=== PATIENT | female | born 1990 | race Caucasian/White ===

== ENCOUNTER 2016-07-12 15:48 | Emergency (ER) | payer MEDICAID ==
[~2016-07-12] VITALS: Ht 160 cm; Wt 118.8 kg
[~2016-07-12 15:48] MED LIST: HYDROCHLOROTHIA1 TAB PO; METOPROLOL SUCC25 M2 PO; SULFAMETHOXAZOL1 TA6 PO; ZITHROMAX Z PA250 MG PO
[2016-07-12] MEDS ORDERED: KEFLEX 500MG.500 MG PO (16:26)
--- NOTE | 2016-07-12 16:27 | Urgent Treatment Center Report ---
History of Present Issue Date/Time Seen by Provider 07/12/16 1619 Visit Reason Pt arrived:Walked Presenting Problem:PT STATES KNOT TO LEFT BACK SIDE OF NECK. STATES HAS BEEN PRESENT FOR THREE OR FOUR DAYS. Location if Accident: Onset of symptoms date/time:/ or onset unknown for:MEDICAL HX UNKNOWN Have you (or family members/close friends) recently traveled outside the [place]? N If Yes, where/when: Have you had exposure to infectious disease within the past month? TB? Other? Specify: Patient state that she noticed a small raised area behind her left ear states that she thinks it may be an infected mole as she often scratches her head there and now it is raised and sore so she wanted to come get it checked out ALLERGIES Coded Allergies: No Known Allergies (01/17/16) Home Medications Reported Medications Metoprolol Succinate 25 MG PO DAILY 30 Days LISINOPRIL/HYDROCHLOROTHIAZIDE (Lisinopril-Hctz 10-12.5 MG Tab) 1 TAB PO DAILY 30 Days History Medical History General CAD? No Angina: No [place]: No Hypertension? Yes Hyperlipidemia? No CHF? No DVT? No PE? No COPD? No Asthma? No Anemia? No GERD? No Gastric ulcers? No GI Bleed? No Hernia? No Thyroid Problems? No Hypothyroidism? No CVA? No Seizures? No Diabetes? No Renal Insuffiency? No UTI? No Stones? No GB Disease: No Nephritic Syndrome? No Asplenia? No Hepatitis? No Sickle Cell Disease? No Arthritis? No Migraines? No Cataracts? No Glaucoma? No MRSA? No HIV? No TB? No Anxiety? No Depression? No Cancer? 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 Hx LMP 1 Week Ago Family History Family HX Diabetes Yes CAD Yes Hypertension Yes Hyperlipidemia Yes Cancer Yes TB No Social History Smoking Hx Smoker: Current Every Day Smoker Tobacco: Yes Type Cigarettes Packs/day 1 1/2 - 2 Packs Alcohol Alcohol: No Review of Systems All Other Systems Reviewed and Negative Skin denies other (raised area behind ear) Comment small raised tender area behind left ear for the last3-4 days Physical Exam Vital Signs Vital Signs Date Time Temp Pulse Resp B/P Pulse O2 O2 Flow FiO2 Ox Delivery Rate 07/12 1601 99.1 100 20 174/101 94 General Appearance normal appearance, WD/WN, no apparent distress, mild distress Respiratory Status Yes: trachea midline, chest symmetrical, non tender chest. No: respiratory distress. 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 No Departure Departure Time of Disposition 1623 Disposition DC Home or Self Care(routine) Clinical Impression Primary Impression: Abscess Condition STABLE Referrals Gerardo ZELAYA,Tao (Family) VAL DENG: Tomorrow-Call Office call 2-3 days for appointment if no improvement Additional Instructions Keep area clean and dry Over the counter Motrin or Tylenol as needed for fever or pain Follow up with family doctor Call Dermatology and make appointment for skin tags and moles Return if needed Discharge Counseling Counseled pt/family regarding diagnosis, medications/RX, home care, follow up needs Prescriptions Current Visit Scripts CEPHALEXIN (Keflex 500MG Capsule) 500 MG PO QID #28 CAP at [id number]
--- NOTE | 2016-07-12 16:27 | Urgent Treatment Center Report ---
History of Present Issue Date/Time Seen by Provider 07/12/16 1619 Visit Reason Pt arrived:Walked Presenting Problem:PT STATES KNOT TO LEFT BACK SIDE OF NECK. STATES HAS BEEN PRESENT FOR THREE OR FOUR DAYS. Location if Accident: Onset of symptoms date/time:/ or onset unknown for:MEDICAL HX UNKNOWN Have you (or family members/close friends) recently traveled outside the [place]? N If Yes, where/when: Have you had exposure to infectious disease within the past month? TB? Other? Specify: Patient state that she noticed a small raised area behind her left ear states that she thinks it may be an infected mole as she often scratches her head there and now it is raised and sore so she wanted to come get it checked out ALLERGIES Coded Allergies: No Known Allergies (01/17/16) Home Medications Reported Medications Metoprolol Succinate 25 MG PO DAILY 30 Days LISINOPRIL/HYDROCHLOROTHIAZIDE (Lisinopril-Hctz 10-12.5 MG Tab) 1 TAB PO DAILY 30 Days History Medical History General CAD? No Angina: No [place]: No Hypertension? Yes Hyperlipidemia? No CHF? No DVT? No PE? No COPD? No Asthma? No Anemia? No GERD? No Gastric ulcers? No GI Bleed? No Hernia? No Thyroid Problems? No Hypothyroidism? No CVA? No Seizures? No Diabetes? No Renal Insuffiency? No UTI? No Stones? No GB Disease: No Nephritic Syndrome? No Asplenia? No Hepatitis? No Sickle Cell Disease? No Arthritis? No Migraines? No Cataracts? No Glaucoma? No MRSA? No HIV? No TB? No Anxiety? No Depression? No Cancer? 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 Family History Family HX Diabetes Yes CAD Yes Hypertension Yes Hyperlipidemia Yes Cancer Yes TB No Social History Smoking Hx Smoker: Current Every Day Smoker Tobacco: Yes Type Cigarettes Packs/day 1 1/2 - 2 Packs Alcohol Alcohol: No Review of Systems All Other Systems Reviewed and Negative Skin denies other (raised area behind ear) Comment small raised tender area behind left ear for the last3-4 days Physical Exam Vital Signs Vital Signs Date Time Temp Pulse Resp B/P Pulse O2 O2 Flow FiO2 Ox Delivery Rate 07/12 1601 99.1 100 20 174/101 94 General Appearance normal appearance, WD/WN, no apparent distress, mild distress Respiratory Status Yes: trachea midline, chest symmetrical, non tender chest. No: respiratory distress. 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 No Departure Departure Time of Disposition 1623 Disposition DC Home or Self Care(routine) Clinical Impression Primary Impression: Abscess Condition STABLE Referrals Gerardo ZELAYA,Tao (Family) VAL DENG: Tomorrow-Call Office call 2-3 days for appointment if no improvement Additional Instructions Keep area clean and dry Over the counter Motrin or Tylenol as needed for fever or pain Follow up with family doctor Call Dermatology and make appointment for skin tags and moles Return if needed Discharge Counseling Counseled pt/family regarding diagnosis, medications/RX, home care, follow up needs Prescriptions Current Visit Scripts CEPHALEXIN (Keflex 500MG Capsule) 500 MG PO QID #28 CAP at [id number]
[2016-07-12 16:35] VITALS: BP 174/101
== END 2016-07-12 16:36 | disposition home or self-care (01) ==
LOC: UTC 15:48
DX: L02.11 Cutaneous abscess of neck (principal); Z72.0 Tobacco use; I10 Essential (primary) hypertension

== ENCOUNTER 2017-01-07 18:38 | Emergency (ER) | payer MEDICAID ==
[~2017-01-07] VITALS: Ht 162.6 cm; Wt 108.0 kg
[~2017-01-07 18:38] MED LIST changes: +KEFLEX 500MG.500 MG PO
--- NOTE | 2017-01-07 19:13 | Urgent Treatment Center Report ---
History of Present Issue Date/Time Seen by Provider 01/07/171910 Visit Reason Pt arrived:Walked Presenting Problem:PT C/O COUGH X3-4 DAYS AND C/O PAIN WHEN COUGHING Location if Accident: Onset of symptoms date/time:/ or onset unknown for:MEDICAL HX UNKNOWN Have you (or family members/close friends) recently traveled outside the [place]? N If Yes, where/when: Have you had exposure to infectious disease within the past month? TB? Other? Specify: Patient state that she has had cough for three to four days with sinus pain and pressure. States that she has coughed so much that she is having pain in her ribs when she coughs. States that she has been having sore throat, and drainage that has continued to get worse so she finally came in to get checked out ALLERGIES Coded Allergies: No Known Allergies (01/07/17) Home Medications Active Scripts CEPHALEXIN (Keflex 500MG Capsule) 500 MG PO QID #28 CAP Prov: 07/12/16 Reported Medications Metoprolol Succinate 25 MG PO DAILY 30 Days LISINOPRIL/HYDROCHLOROTHIAZIDE (Lisinopril-Hctz 10-12.5 MG Tab) 1 TAB PO DAILY 30 Days History Medical History General CAD? No Angina: No [place]: No Hypertension? Yes Hyperlipidemia? No CHF? No DVT? No PE? No COPD? No Asthma? No Anemia? No GERD? No Gastric ulcers? No GI Bleed? No Hernia? No Thyroid Problems? No Hypothyroidism? No CVA? No Seizures? No Diabetes? No Renal Insuffiency? No UTI? No Stones? No GB Disease: No Nephritic Syndrome? No Asplenia? No Hepatitis? No Sickle Cell Disease? No Arthritis? No Migraines? No Cataracts? No Glaucoma? No MRSA? No HIV? No TB? No Anxiety? No Depression? No Cancer? No Immunization HX DT/Tetanus 1-4 YRS Flu 2YRSorMore Pneumonia NEVER Surgical Hx Previous Surgery?Y C-SECTIONS X2 WISDOM TEETH OTHER ORAL SURGERY Family History Family HX Diabetes Yes CAD Yes Hypertension Yes Hyperlipidemia Yes Cancer Yes TB No Social History Smoking Hx Smoker: Current Every Day Smoker Tobacco: Yes Type Cigarettes Packs/day 1 1/2 - 2 Packs Alcohol Alcohol: No Review of Systems All Other Systems Reviewed and Negative Constitutional chills ENT nose congestion, throat pain. Respiratory cough Physical Exam Vital Signs Vital Signs Date Time Temp Pulse Resp B/P Pulse O2 O2 Flow FiO2 Ox Delivery Rate 01/07 1846 98.7 98 18 201/131 97 General Appearance normal appearance Ear, Nose, Throat sinus pain/drainage, nasal congestion, Throat red, irritated drainage noted Respiratory Status Yes: trachea midline, chest symmetrical, non tender chest. No: respiratory distress. Cardiovascular normal exam, regular rate/rhythm, no peripheral edema Neurologic alert, normal exam, oriented x 3 Medical Decision Making LABS/Meds/Orders Pt receiving controlled substance in ED? No Results/Orders Orders Procedure Date/time Status CHEST(2 VIEWS-NOT PORTABLE) 01/07 1850 Active XRAY/CT/US XRAY/CT/US XRAY chest XR interpretation by reviewed by me Xray Results no infiltrates Comment discussed with Dr Vaz Departure Departure Time of Disposition 1934 Disposition DC Home or Self Care(routine) Clinical Impression Primary Impression: Upper respiratory infection Qualifiers: URI type: unspecified URI Qualified Code: J06.9 - Acute upper respiratory infection, unspecified Condition STABLE Referrals Tao Carrillo MD (Family): 3 Days-Call Office if no improvement or worsening of symtoms Patient Instructions Cough, DI for Nasal Congestion, DI for Sinusitis Additional Instructions * Monitor Temp. Tylenol and/or Ibuprofen as needed. ER if fever is no less than 101 despite alternating Tylenol and Ibuprofen * Encourage fluids, water, Gatorade, powerade, pedialyte if /toddler/or child * Warm salt water gargles for throat irritation *Warm fluids *Sore throat lozenges *Sleep elevated *humidifier or vaporizer *Flonase 2 sprays each nostril daily but may take 2-3 days to notice improvement with it *Bromfed may cause drowsiness. Know how it effect you or your child. Before driving, caring for small children or sending your child to school Follow up IMMEDIATELY for new or worsening of symptoms OR no noticeable improvement over the next 48-72 hours. 911 immediately for any life threatening symptoms such as chest pain or difficulty breathing Discharge Counseling Counseled pt/family regarding diagnosis, test results, medications/RX, home care, follow up needs Prescriptions Current Visit Scripts Azithromycin (Zithromycin (Z-DAILY) 250MG Tab) 250 MG PO DAILY #6 TAB TAKE TWO (2) TABLETS ON DAY 1, THEN ONE (1) TABLET DAY #2 THRU #5 Fluticasone Propionate (Flonase 50 Mcg Nasal [place]) 2 SPRAY NA DAILY #1 BOT Methylprednisolone (Medrol Dose Daily) 4 MG PO UD #1 DAILY TAKE DIRECTED ON PACKAGING Albuterol Sulfate (Proair Hfa) 2 PUFFS IH Q6HP PRN breathing #1 INH Ref 1 Benzonatate (Tessalon Perle) 100 MG PO TID #15 SGL at 1940
[2017-01-07] MEDS ORDERED: PROAIR HFA0.09 MG/AC IH (19:40)
[2017-01-07] MEDS ORDERED: FLONASE 50 MCG16 GM (19:40)
[2017-01-07] MEDS ORDERED: ZITHROMAX Z PA250 MG PO (19:40)
[2017-01-07] MEDS ORDERED: TESSALON PERLE100 M1 PO (19:40)
[2017-01-07] MEDS ORDERED: MEDROL 4MG. DOSE4 MG PO (19:40)
[2017-01-07 19:58] VITALS: BP 201/131
--- NOTE | 2017-01-07 21:42 | RADIOLOGY REPORT PS360 ---
CHEST(2 VIEWS-NOT PORTABLE) COMPARISON: Portable upright chest 01/17/2016 HISTORY: Chest wall pain TECHNIQUE: PA and lateral chest FINDINGS: The lung herrera are well expanded and appear clear of infiltrate. There is borderline cardiomegaly but no evidence of failure. There is no pleural fluid. IMPRESSION: Borderline cardio megaly, no acute chest pathology noted
--- OUTSIDE RECORDS SUMMARY | 2017-01-13 16:14 | External Medical Summary Rpt | CCD ---
Author Author [employer] Organization [employer] Address Unknown Phone Unavailable Purpose Continuity of Care Document - through 2016
--- OUTSIDE RECORDS SUMMARY | 2017-01-13 16:14 | External Medical Summary Rpt ---
Author Author SCOTT Dennis, [employer] Address Unknown Phone Unavailable Results CHLAMYDIA AND GONORRHEA TESTING Observa Value Referen Units Interpr Notes Date tion ce etation Range COLLECT AH No No No No Nov 15 OR informa informa informa informa 2017 tion in tion in tion in tion in 11:00 source source source source AM data data data data ETHNICI WHITE, No No No No Nov 15 TY NON-HIS informa informa informa informa 2017 PANIC tion in tion in tion in tion in 11:00 source source source source AM data data data data KIT 10-31-2 No No No No Nov 15 EXPIRAT 017 informa informa informa informa 2017 ION tion in tion in tion in tion in 11:00 DATE source source source source AM data data data data SYMPTOM NO No No No No Nov 15 S informa informa informa informa 2017 tion in tion in tion in tion in 11:00 source source source source AM data data data data REASON REVISIT No No No No Nov 15 FOR /ANNUAL informa informa informa informa 2017 REQUEST FAMILY tion in tion in tion in tion in 11:00 source source source source AM PLANNIN data data data data G VISIT SPECIME FEMALE No No No No Nov 15 N ENDOCER informa informa informa informa 2017 SOURCE VICAL tion in tion in tion in tion in 11:00 source source source source AM data data data data PREGNAN NO No No No No Nov 15 T informa informa informa informa 2017 tion in tion in tion in tion in 11:00 source source source source AM data data data data CHART N/A No No No No Nov 15 NUMBER informa informa informa informa 2017 tion in tion in tion in tion in 11:00 source source source source AM data data data data Chlamyd NEGATIV No No No NEGATIV Nov 15 ia E informa informa informa E 2017 trachom tion in tion in tion in RESULT= 11:00 atis source source source WITHIN AM rRNA data data data NORMAL [Presen ce] in LIMITSP Unspeci OSITIVE fied specime RESULT= n by Probe & ABNORMA target LEQUIVO ANNE-MARIE amplifi RESULT= cation method INDETER MINATEU NSATISF ACTORY RESULT= INVALID Neisser NEGATIV No No No NEGATIV Nov 15 ia E informa informa informa E 2017 gonorrh tion in tion in tion in RESULT= 11:00 oeae source source source WITHIN AM rRNA data data data NORMAL [Presen ce] in LIMITSP Unspeci OSITIVE fied specime RESULT= n by Probe & ABNORMA target LEQUIVO ANNE-MARIE amplifi RESULT= cation method INDETER MINATEU NSATISF ACTORY RESULT= INVALID THE APTIMA COMBO 2 ASSAY IS NOT INTENDE D FOR THE EVALUAT ION OF SUSPECT EDSEXUA L ABUSE OR FOR OTHER MEDICO- LEGAL INDICAT IONS. FOR THOSE PATIENT S FORWHOM A FALSE POSITIV E RESULT MAY HAVE ADVERSE PSYCHO- SOCIAL IMPACT, [facility] MM[facility] RETESTI NG.\.br \This report contain s patient informa tion that must be protect ed in accorda nce with the Health Insuran ce Portabi lity and Account ability Act. CHLAMYDIA AND GONORRHEA TESTING Observa Value Referen Units Interpr Notes Date tion ce etation Range COLLECT AH No No No No Nov 15 OR informa informa informa informa 2017 tion in tion in tion in tion in 11:00 source source source source AM data data data data ETHNICI WHITE, No No No No Nov 15 TY NON-HIS informa informa informa informa 2017 PANIC tion in tion in tion in tion in 11:00 source source source source AM data data data data KIT 10-31-2 No No No No Nov 15 EXPIRAT 017 informa informa informa informa 2017 ION tion in tion in tion in tion in 11:00 DATE source source source source AM data data data data SYMPTOM NO No No No No Nov 15 S informa informa informa informa 2017 tion in tion in tion in tion in 11:00 source source source source AM data data data data REASON REVISIT No No No No Nov 15 FOR /ANNUAL informa informa informa informa 2017 REQUEST FAMILY tion in tion in tion in tion in 11:00 source source source source AM PLANNIN data data data data G VISIT SPECIME FEMALE No No No No Nov 15 N ENDOCER informa informa informa informa 2017 SOURCE VICAL tion in tion in tion in tion in 11:00 source source source source AM data data data data PREGNAN NO No No No No Nov 15 T informa informa informa informa 2017 tion in tion in tion in tion in 11:00 source source source source AM data data data data CHART N/A No No No No Nov 15 NUMBER informa informa informa informa 2017 tion in tion in tion in tion in 11:00 source source source source AM data data data data Chlamyd Pending No No No No Nov 15 ia informa informa informa informa 2017 trachom tion in tion in tion in tion in 11:00 atis source source source source AM rRNA data data data data [Presen ce] in Unspeci fied specime n by Probe & target amplifi cation method Neisser Pending No No No \.br\Nov 15 ia informa informa informa is 2017 gonorrh tion in tion in tion in report 11:00 oeae source source source contain AM rRNA data data data s [Presen patient ce] in Unspeci informa fied tion specime that n by must be Probe & target protect ed in amplifi accorda cation nce method with the Health Insuran ce Portabi lity and Account ability Act. CHLAMYDIA AND GONORRHEA TESTING Observa Value Referen Units Interpr Notes Date tion ce etation Range COLLECT AH No No No No Nov 15 OR informa informa informa informa 2017 tion in tion in tion in tion in 11:00 source source source source AM data data data data ETHNICI WHITE, No No No No Nov 15 TY NON-HIS informa informa informa informa 2017 PANIC tion in tion in tion in tion in 11:00 source source source source AM data data data data KIT 10-31-2 No No No No Nov 15 EXPIRAT 017 informa informa informa informa 2017 ION tion in tion in tion in tion in 11:00 DATE source source source source AM data data data data SYMPTOM NO No No No No Nov 15 S informa informa informa informa 2017 tion in tion in tion in tion in 11:00 source source source source AM data data data data REASON REVISIT No No No No Nov 15 FOR /ANNUAL informa informa informa informa 2017 REQUEST FAMILY tion in tion in tion in tion in 11:00 source source source source AM PLANNIN data data data data G VISIT SPECIME FEMALE No No No No Nov 15 N ENDOCER informa informa informa informa 2017 SOURCE VICAL tion in tion in tion in tion in 11:00 source source source source AM data data data data PREGNAN NO No No No No Nov 15 T informa informa informa informa 2017 tion in tion in tion in tion in 11:00 source source source source AM data data data data CHART N/A No No No No Nov 15 NUMBER informa informa informa informa 2017 tion in tion in tion in tion in 11:00 source source source source AM data data data data Chlamyd Pending No No No No Nov 15 ia informa informa informa informa 2017 trachom tion in tion in tion in tion in 11:00 atis source source source source AM rRNA data data data data [Presen ce] in Unspeci fied specime n by Probe & target amplifi cation method Neisser Pending No No No \.br\Nov 15 ia informa informa informa is 2017 gonorrh tion in tion in tion in report 11:00 oeae source source source contain AM rRNA data data data s [Presen patient ce] in Unspeci informa fied tion specime that n by must be Probe & target protect ed in amplifi accorda cation nce method with the Health Insuran ce Portabi lity and Account ability Act.
--- OUTSIDE RECORDS SUMMARY | 2017-01-13 16:14 | External Medical Summary Rpt ---
[...] MAY HAVE ADVERSE PSYCHO- SOCIAL IMPACT, [facility] RET[facility] NG.\.br \This report contain s [...]
--- OUTSIDE RECORDS SUMMARY | 2017-01-13 16:14 | External Medical Summary Rpt | CCD ---
Author Author , [employer] Address Unknown Phone [email or web address] Purpose Continuity of Care Document - 11-15-2016 through 2016 Results Labs Lab Lab Date Result Refere Interp Status Commen Order Detail nces retati t Range on CHLAMYDIA AND GONORRHEA TESTING (11-15-2016 11:00) Chlamyd NEGATIV complet ia 017 E ed trachom 11:00 atis rRNA [Presen ce] in Unspeci fied specime n by Probe & target amplifi cation method Neisser NEGATIV complet ia 017 E ed gonorrh 11:00 oeae rRNA [Presen ce] in Unspeci fied specime n by Probe & target amplifi cation method CHLAMYDIA AND GONORRHEA TESTING (11-15-2016 11:00) COLLECT AH complet OR 017 ed 11:00 ETHNICI WHITE, complet TY 017 NON-HIS ed 11:00 PANIC KIT 01-31-2 complet EXPIRAT 017 017 ed ION 11:00 DATE SYMPTOM NO complet S 017 ed 11:00 REASON REVISIT complet FOR 017 /ANNUAL ed REQUEST 11:00 FAMILY PLANNIN G VISIT SPECIME FEMALE complet N 017 ENDOCER ed SOURCE 11:00 VICAL PREGNAN NO complet T 017 ed 11:00 CHART N/A complet NUMBER 017 ed 11:00 Chlamyd Pending complet ia 017 ed trachom 11:00 atis rRNA [Presen ce] in Unspeci fied specime n by Probe & target amplifi cation method Neisser Pending complet ia 017 ed gonorrh 11:00 oeae rRNA [Presen ce] in Unspeci fied specime n by Probe & target amplifi cation method
--- OUTSIDE RECORDS SUMMARY | 2017-01-13 16:14 | External Medical Summary Rpt | CCD ---
Demographics Preferred Language Malay Marital Status Unknown Orthodox Affiliation Unknown Race Unknown Ethnic Group Unknown Author Author , SCOTT CHAVEZ Address Unknown Phone Immunization No patient found.
--- OUTSIDE RECORDS SUMMARY | 2017-01-13 16:14 | External Medical Summary Rpt | CCD ---
Author Author , [employer] Address Unknown Phone [email or web address] Purpose Continuity of Care Document - 11-15-2016 [...]
--- OUTSIDE RECORDS SUMMARY | 2017-01-13 16:14 | External Medical Summary Rpt | CCD ---
Demographics Preferred Language Indonesian Marital Status Unknown Confucianist Affiliation Unknown Race Unknown Ethnic Group Unknown Author Author , SCOTT CHAVEZ Address Unknown Phone Immunization No patient found.
== END 2017-01-07 20:00 | disposition home or self-care (01) ==
LOC: UTC 18:38
DX: J06.9 Acute upper respiratory infection, unspecified (principal); F17.210 Nicotine dependence, cigarettes, uncomplicated; I10 Essential (primary) hypertension

== ENCOUNTER 2017-01-12 18:43 | Emergency (ER) | payer MEDICAID ==
[~2017-01-12] VITALS: Ht 162.6 cm; Wt 105.2 kg
[~2017-01-12 18:43] MED LIST changes: +FLONASE 50 MCG16 GM; +MEDROL 4MG. DOSE4 MG PO; +PROAIR HFA0.09 MG/AC IH; +TESSALON PERLE100 M1 PO
[2017-01-12 19:11] LABS: HEMOGLOBIN 15.8 g/dL (12.2-16.2); LYMPH # 3.5 K/mm3 (0.7-4.5); LYMPH % 33.3 % (10-50.0)
[2017-01-12 19:22] LABS: URINE BILIRUBIN - DIPSTICK NEGATIVE (NEG); URINE BLOOD 3+ (NEG)
[2017-01-12 19:36] LABS: URINE SQUAMOUS CELLS 20-50 #/hpf (0-5)
--- NOTE | 2017-01-12 19:41 | Emergency Room Report ---
History of Present Illness Time Seen by 1933 Presenting Problem in Triage Pt arrived:Wheelchair Presenting Problem:PT C/O DIZZINESS AND FEELING IF SHE IS GOING TO PASS OUT. 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 N Clinical Suspician of Infection? N Mental Status: 1 - Regular (Normal Baseline) Sepsis Risk:Possible Sepsis Risk Have you (or family members/close friends) recently traveled outside the [place]? N If Yes, where/when: Have you had exposure to infectious disease within the past month? N TB? Other? Specify: 26 years old white female with history of hypertension and asthma. She ran out of her blood pressure medicine and developed frontal headache, dizziness, and difficulty breathing. She denies having chest pain or abdominal pain nausea vomiting. She denies having numbness or tingling of the lower extremities. Source patient, RN notes reviewed, family Exam Limitations no limitations ALLERGIES Coded Allergies: No Known Allergies (01/07/17) (Driss ZELAYA,[facility]) Comment pt felt dizzy but no syncope Cardiac Chest Pain Chest pain indicative of cardiac No Timing/Duration this evening Severity moderate Home Medications Active Scripts CEPHALEXIN (Keflex 500MG Capsule) 500 MG PO QID #28 CAP Prov: 07/12/16 Azithromycin (Zithromycin (Z-JEAN-PIERRE) 250MG Tab) 250 MG PO DAILY #6 TAB Prov: 01/07/17 Fluticasone Propionate (Flonase 50 Mcg Nasal [place]) 2 SPRAY NA DAILY #1 BOT Prov: 01/07/17 Methylprednisolone (Medrol Dose Jean-Pierre) 4 MG PO UD #1 JEAN-PIERRE Prov: 01/07/17 Albuterol Sulfate (Proair Hfa) 2 PUFFS IH Q6HP PRN breathing #1 INH Ref 1 Prov: 01/07/17 Benzonatate (Tessalon Perle) 100 MG PO TID #15 SGL Prov: 01/07/17 Reported Medications Metoprolol Succinate 25 MG PO DAILY 30 Days LISINOPRIL/HYDROCHLOROTHIAZIDE (Lisinopril-Hctz 10-12.5 MG Tab) 1 TAB PO DAILY 30 Days (Prieto More MD) History Medical History General CAD? No Angina: No [place]: No Hypertension? Yes Hyperlipidemia? No CHF? No DVT? No PE? No COPD? No Asthma? No Anemia? No GERD? No Gastric ulcers? No GI Bleed? No Hernia? No Thyroid Problems? No Hypothyroidism? No CVA? No Seizures? No Diabetes? No Renal Insuffiency? No End Stage Renal Disease? No UTI? No Stones? No BPH? No GB Disease: No Nephritic Syndrome? No Asplenia? No Hepatitis? No Sickle Cell Disease? No Arthritis? No Migraines? No Cataracts? No Glaucoma? No MRSA? No HIV? No TB? No Anxiety? No Depression? No Cancer? 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 Respiratory see HPI, shortness of breath, wheezing Cardiovascular no symptoms reported Gastrointestinal no symptoms reported Genitourinary no symptoms reported. Musculoskeletal no symptoms reported Skin no symptoms reported Psychiatric/Neurological headache (Marycarmen Naqvi MD) Physical Exam Vital Signs Vital Signs Date Time Temp Pulse Resp B/P Pulse O2 O2 Flow FiO2 Ox Delivery Rate 01/12 2035 98.3 93 18 182/126 96 01/12 1927 105 20 180/100 94 01/12 1852 98.4 119 20 187/117 119 - WBC >12,000 or <4,000 or 10% bands? 2 or more SIRS Criteria Met? B/P:180/100 MAP:140 Creatinine >2.0? UA output<0.5ml/kg/hr for 2 hrs? Platelet count >100,000? Lactate >2.0mmol/1? INR >1.2 or PTT > than 60 sec? Evidence of Organ Dysfunction? Provider documented clinical suspician of infection? N Sepsis Criteria Count: 2 Sepsis Risk: Possible Sepsis Risk General Appearance normal appearance, WD/WN Eye Exam - bilateral eye normal exam, bilateral eye PERRL, bilateral eye EOMI Ear, Nose, Throat hearing grossly normal, normal ENT inspection Neck normal inspection, non-tender, supple, full range of motion Respiratory Status Yes: trachea midline, chest symmetrical, non tender chest. No: respiratory distress. Lung Sounds bilateral: wheezing (mild exp wheez bilaterraly). 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 2 or more SIRS Criteria Met? B/P:182/126 MAP:140 Creatinine >2.0? UA output<0.5ml/kg/hr for 2 hrs? Platelet count >100,000? Lactate >2.0mmol/1? INR >1.2 or PTT > than 60 sec? Evidence of Organ Dysfunction? Provider documented clinical suspician of infection? N Sepsis Criteria Count: 2 Sepsis Risk: Possible Sepsis Risk General Appearance no apparent distress Glascow Coma Scale Glascow Coma Scale Response Value EYE response: 4 Spontaneously 4 MOTOR response: 6 OBEYS 6 VERBAL response: 5 Oriented & Converses 5 Total 15 Mental status normal mood/affect (Derik ZELAYA,Prieto Gil) Medical Decision Making LABS/Meds/Orders Pt receiving controlled substance in ED? No Results/Orders Laboratory Tests 01/12/171914: Urine Color YELLOW, Urine Appearance CLEAR, Urine pH 6.0, Ur Specific [place] 1.020, Urine Protein TRACE H, Urine Ketones NEGATIVE, Urine Blood 3+ H, Urine Nitrate POSITIVE H, Urine Bilirubin NEGATIVE, Urine Urobilinogen 0.2, Ur Leukocyte Esterase 1+ H, Urine RBC 50-100, Urine WBC 5-10, Ur Squamous Epith Cells 20-50, Urine Bacteria 4+, Urine Glucose NEGATIVE 01/12/171857: Troponin I < 0.02 01/12/171857: Sodium 137, Potassium 3.4 L, Chloride 101, Carbon Dioxide 29, BUN 14, Creatinine 0.9, Estimated Creat Clear 155, Estimated GFR (MDRD) 75, Glucose 107 H, Calcium 9.1, Total Bilirubin 0.3, AST 13 L, ALT 19, Alkaline Phosphatase 99, Total Protein 8.0, Albumin 4.0, Globulin 4.0 H, Albumin/Globulin Ratio 1.0 L, WBC 10.4, RBC 5.15, Hgb 15.8, Hct 45.2, MCV 87.7, RDW 12.1, Plt Count 272, MPV 8.4, Gran % 58.2, Gran # 6.1, Lymphocytes % 33.3, Monocytes % 5.1, Eosinophils % 2.8, Basophils % 0.5, Lymphocytes # 3.5, Monocytes # 0.5, Eosinophils # 0.3, Basophils # 0.1, PUBS MCHC 35.1, MCH 30.8 01/12/171851: POC Glucose 109 Current Medication Orders Sig/[place] Start time Last Medication Dose Route Stop Time Status Admin Sodium Chloride 1,000 ML .Q1H1M 01/12 2030 DC 01/12 IV 01/12 Sodium Chloride 10 ML PRN PRN 01/12 2030 AC IV 01/13 2029 Lisinopril/HCTZ 1 TAB ONCE ONE 01/12 1945 DC 01/12 PO 01/12 Sodium Chloride 10 ML PRN PRN 01/12 1900 AC IV 01/14 1856 Orders Procedure Date/time Status DIET-NOTHING BY MOUTH 01/13 B Active URINE 01/[address] HEAD W/O CONTRAST 01/12 1946 Active RT REQUEST ALBUTEROL NEB 01/[address] HEAD REQ 01/12 1941 Complete 12 LEAD EKG-BESSON (INITIAL) 01/13 1924 Active ELECTROCARDIOGRAM REQUEST 01/13 1924 Active TROPONIN I 01/13 1924 Complete CULTURE, URINE 01/12 1915 Active IV SALINE LOCK 01/13 1856 Active URINALYSIS/COMPLETE 01/13 1856 Complete FSBS REQUEST BY CARE AREA 01/13 1856 Active CBC WITH AUTO DIFF 01/13 1856 Complete CHEM 12 PROFILE 01/13 1856 Complete FINGERSTICK BLOOD SUGAR 01/13 1852 Complete CM/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 ST/Twave chgs XRAY/CT/US XRAY/CT/US CT head CT interpretation by discussed w/radiologist Time results known: 2107 CT Results normal/NAD (Prieto More MD) Departure Departure Time of Disposition 1938 Condition STABLE Referrals Tao Carrillo MD (Family) Discharge Counseling Counseled pt/family regarding diagnosis, test results, medications/RX, home care, follow up needs ED Critical Care Critical Care No If Critical Care minutes are documented, the time involved in the performance of seperately reportable procedures was not counted toward critical care time documented. I directly delivered medical care to this critically ill and/or injured patient. Timely evaluation and treatment was necessary to address the significant organ system(s) dysfunction present in this patient. (Marycarmen Naqvi MD) Departure Disposition DC Home or Self Care(routine) Clinical Impression Primary Impression: Asthma Qualifiers: Asthma severity: mild Asthma persistence: intermittent Asthma complication type: unspecified Qualified Code: J45.20 - Mild intermittent asthma , uncomplicated Secondary Impressions: Hypertension Qualifiers: Hypertension type: unspecified Qualified Code: I10 - Essential ( primary) hypertension Non compliance with medical treatment Tobacco use Patient Instructions DI for Dizziness-Nonvertigo Additional Instructions fluids and finish meds and see pcp about bp Prescriptions Current Visit Scripts LISINOPRIL (Lisinopril) 10 MG PO DAILY #15 TAB (Prieto More MD) at 1940 at 2131
--- NOTE | 2017-01-12 19:41 | Emergency Room Report ---
History of Present Illness Time Seen by 1935 Presenting Problem in Triage Pt arrived:Wheelchair Presenting Problem:PT C/O DIZZINESS AND FEELING IF SHE IS GOING TO PASS OUT. 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 N Clinical Suspician of Infection? N Mental Status: 1 - Regular (Normal Baseline) Sepsis Risk:Possible Sepsis Risk Have you (or family members/close friends) recently traveled outside the [place]? N If Yes, where/when: Have you had exposure to infectious disease within the past month? N TB? Other? Specify: 26 years old white female with history of hypertension and asthma. She ran out of her blood pressure medicine and developed frontal headache, dizziness, and difficulty breathing. She denies having chest pain or abdominal pain nausea vomiting. She denies having numbness or tingling of the lower extremities. Source patient, RN notes reviewed, family Exam Limitations no limitations ALLERGIES Coded Allergies: No Known Allergies (01/07/17) (Driss ZELAYA,[facility]) Comment pt felt dizzy but no syncope Cardiac Chest Pain Chest pain indicative of cardiac No Timing/Duration this evening Severity moderate Home Medications Active Scripts CEPHALEXIN (Keflex 500MG Capsule) 500 MG PO QID #28 CAP Prov: 07/12/16 Azithromycin (Zithromycin (Z-JEAN-PIERRE) 250MG Tab) 250 MG PO DAILY #6 TAB Prov: 01/07/17 Fluticasone Propionate (Flonase 50 Mcg Nasal [place]) 2 SPRAY NA DAILY #1 BOT Prov: 01/07/17 Methylprednisolone (Medrol Dose Jean-Pierre) 4 MG PO UD #1 JEAN-PIERRE Prov: 01/07/17 Albuterol Sulfate (Proair Hfa) 2 PUFFS IH Q6HP PRN breathing #1 INH Ref 1 Prov: 01/07/17 Benzonatate (Tessalon Perle) 100 MG PO TID #15 SGL Prov: 01/07/17 Reported Medications Metoprolol Succinate 25 MG PO DAILY 30 Days LISINOPRIL/HYDROCHLOROTHIAZIDE (Lisinopril-Hctz 10-12.5 MG Tab) 1 TAB PO DAILY 30 Days (Prieto More MD) History Medical History General CAD? No Angina: No PR: No Hypertension? Yes Hyperlipidemia? No CHF? No DVT? No PE? No COPD? No Asthma? No Anemia? No GERD? No Gastric ulcers? No GI Bleed? No Hernia? No Thyroid Problems? No Hypothyroidism? No CVA? No Seizures? No Diabetes? No Renal Insuffiency? No End Stage Renal Disease? No UTI? No Stones? No BPH? No GB Disease: No Nephritic Syndrome? No Asplenia? No Hepatitis? No Sickle Cell Disease? No Arthritis? No Migraines? No Cataracts? No Glaucoma? No MRSA? No HIV? No TB? No Anxiety? No Depression? No Cancer? No Immunization Hx DT/Tetanus 1-4 YRS Flu 2YRSorMore Pneumonia NEVER Surgical Hx Previous Surgery?Y C-SECTIONS X2 WISDOM TEETH OTHER ORAL SURGERY RN OUTPATIENT SURGERY Hx LMP Now Family History Family Hx Diabetes Yes CAD Yes Hypertension Yes Hyperlipidemia Yes Cancer Yes TB No Social History Smoking Hx Smoker: Current Every Day Smoker Tobacco: Yes Type Cigarettes Packs/day 1 1/2 - 2 Packs Alcohol Alcohol: No (Driss ZELAYA,Marycarmen) Social History Drugs none (Prieto More MD) Review of Systems All Other Systems Reviewed and Negative Constitutional see HPI, weakness Eyes no symptoms reported ENT no symptoms reported. Respiratory see HPI, shortness of breath, wheezing Cardiovascular no symptoms reported Gastrointestinal no symptoms reported Genitourinary no symptoms reported. Musculoskeletal no symptoms reported Skin no symptoms reported Psychiatric/Neurological headache (Marycarmen Naqvi MD) Physical Exam Vital Signs Vital Signs Date Time Temp Pulse Resp B/P Pulse O2 O2 Flow FiO2 Ox Delivery Rate 01/12 2035 98.3 93 18 182/126 96 01/12 1927 105 20 180/100 94 01/12 1852 98.4 119 20 187/117 119 - WBC >12,000 or <4,000 or 10% bands? 2 or more SIRS Criteria Met? B/P:180/100 MAP:140 Creatinine >2.0? UA output<0.5ml/kg/hr for 2 hrs? Platelet count >100,000? Lactate >2.0mmol/1? INR >1.2 or PTT > than 60 sec? Evidence of Organ Dysfunction? Provider documented clinical suspician of infection? N Sepsis Criteria Count: 2 Sepsis Risk: Possible Sepsis Risk General Appearance normal appearance, WD/WN Eye Exam - bilateral eye normal exam, bilateral eye PERRL, bilateral eye EOMI Ear, Nose, Throat hearing grossly normal, normal ENT inspection Neck normal inspection, non-tender, supple, full range of motion Respiratory Status Yes: trachea midline, chest symmetrical, non tender chest. No: respiratory distress. Lung Sounds bilateral: wheezing (mild exp wheez bilaterraly). 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 2 or more SIRS Criteria Met? B/P:182/126 MAP:140 Creatinine >2.0? UA output<0.5ml/kg/hr for 2 hrs? Platelet count >100,000? Lactate >2.0mmol/1? INR >1.2 or PTT > than 60 sec? Evidence of Organ Dysfunction? Provider documented clinical suspician of infection? N Sepsis Criteria Count: 2 Sepsis Risk: Possible Sepsis Risk General Appearance no apparent distress Glascow Coma Scale Glascow Coma Scale Response Value EYE response: 4 Spontaneously 4 MOTOR response: 6 OBEYS 6 VERBAL response: 5 Oriented & Converses 5 Total 15 Mental status normal mood/affect (Derik ZELAYA,Prieto Gil) Medical Decision Making LABS/Meds/Orders Pt receiving controlled substance in ED? No Results/Orders Laboratory Tests 01/12/171914: Urine Color YELLOW, Urine Appearance CLEAR, Urine pH 6.0, Ur Specific [place] 1.020, Urine Protein TRACE H, Urine Ketones NEGATIVE, Urine Blood 3+ H, Urine Nitrate POSITIVE H, Urine Bilirubin NEGATIVE, Urine Urobilinogen 0.2, Ur Leukocyte Esterase 1+ H, Urine RBC 50-100, Urine WBC 5-10, Ur Squamous Epith Cells 20-50, Urine Bacteria 4+, Urine Glucose NEGATIVE 01/12/171857: Troponin I < 0.02 01/12/171857: Sodium 137, Potassium 3.4 L, Chloride 101, Carbon Dioxide 29, BUN 14, Creatinine 0.9, Estimated Creat Clear 155, Estimated GFR (MDRD) 75, Glucose 107 H, Calcium 9.1, Total Bilirubin 0.3, AST 13 L, ALT 19, Alkaline Phosphatase 99, Total Protein 8.0, Albumin 4.0, Globulin 4.0 H, Albumin/Globulin Ratio 1.0 L, WBC 10.4, RBC 5.15, Hgb 15.8, Hct 45.2, MCV 87.7, RDW 12.1, Plt Count 272, MPV 8.4, Gran % 58.2, Gran # 6.1, Lymphocytes % 33.3, Monocytes % 5.1, Eosinophils % 2.8, Basophils % 0.5, Lymphocytes # 3.5, Monocytes # 0.5, Eosinophils # 0.3, Basophils # 0.1, PUBS MCHC 35.1, MCH 30.8 01/12/171851: POC Glucose 109 Current Medication Orders Sig/[place] Start time Last Medication Dose Route Stop Time Status Admin Sodium Chloride 1,000 ML .Q1H1M 01/12 2030 DC 01/12 IV 01/12 Sodium Chloride 10 ML PRN PRN 01/12 2030 AC IV 01/13 2029 Lisinopril/HCTZ 1 TAB ONCE ONE 01/12 1945 DC 01/12 PO 01/12 Sodium Chloride 10 ML PRN PRN 01/12 1900 AC IV 01/14 1856 Orders Procedure Date/time Status DIET-NOTHING BY MOUTH 01/13 B Active URINE 01/[address] HEAD W/O CONTRAST 01/12 1946 Active RT REQUEST ALBUTEROL NEB 01/[address] HEAD REQ 01/12 1941 Complete 12 LEAD EKG-BESSON (INITIAL) 01/13 1924 Active ELECTROCARDIOGRAM REQUEST 01/13 1924 Active TROPONIN I 01/13 1924 Complete CULTURE, URINE 01/12 1915 Active IV SALINE LOCK 01/13 1856 Active URINALYSIS/COMPLETE 01/13 1856 Complete FSBS REQUEST BY CARE AREA 01/13 1856 Active CBC WITH AUTO DIFF 01/13 1856 Complete CHEM 12 PROFILE 01/13 1856 Complete FINGERSTICK BLOOD SUGAR 01/13 1852 Complete CM/EKG CM/safety leader Rhythm Normal Sinus Rhythm EKG non-spec. ST/Twave chgs XRAY/CT/US XRAY/CT/US CT head CT interpretation by discussed w/radiologist Time results known: 2107 CT Results normal/NAD (Prieto More MD) Departure Departure Time of Disposition 1938 Condition STABLE Referrals Tao Carrillo MD (Family) Discharge Counseling Counseled pt/family regarding diagnosis, test results, medications/RX, home care, follow up needs ED Critical Care Critical Care No If Critical Care minutes are documented, the time involved in the performance of seperately reportable procedures was not counted toward critical care time documented. I directly delivered medical care to this critically ill and/or injured patient. Timely evaluation and treatment was necessary to address the significant organ system(s) dysfunction present in this patient. (Marycarmen Naqvi MD) Departure Disposition DC Home or Self Care(routine) Clinical Impression Primary Impression: Asthma Qualifiers: Asthma severity: mild Asthma persistence: intermittent Asthma complication type: unspecified Qualified Code: J45.20 - Mild intermittent asthma , uncomplicated Secondary Impressions: Hypertension Qualifiers: Hypertension type: unspecified Qualified Code: I10 - Essential ( primary) hypertension Non compliance with medical treatment Tobacco use Patient Instructions DI for Dizziness-Nonvertigo Additional Instructions fluids and finish meds and see pcp about bp Prescriptions Current Visit Scripts LISINOPRIL (Lisinopril) 10 MG PO DAILY #15 TAB (Prieto More MD) at 1940 at 2131
[2017-01-12] MEDS ORDERED: LISINOPRIL 10MG10 MG PO (21:31)
[2017-01-12 21:33] VITALS: BP 144/101
--- NOTE | 2017-01-13 04:57 | RADIOLOGY REPORT PS360 ---
CT HEAD W/O CONTRAST HISTORY: HEADACHE ORDERING PHYSICIAN: Prieto More MD PATIENT AGE: 26 years COMPARISON: None TECHNIQUE: Axial images obtained without contrast. Brain and bone windows reviewed. FINDINGS: No midline shift, mass effect, intracranial hemorrhage, hydrocephalus, or extra-axial fluid collection is evident. The calvarium has an unremarkable appearance. No mastoid effusion. Minimal mucosal thickening of the ethmoid sinuses.. There is mild prominence of the adenoids IMPRESSION: 1. No acute intracranial pathology. 2. Minimal mucosal thickening of the ethmoid sinuses and mild prominence of the adenoids.
== END 2017-01-12 21:40 | disposition home or self-care (01) ==
LOC: UTC 18:43 → ER 18:45
PROVIDERS: Emergency Medicine
DX: J45.20 Mild intermittent asthma, uncomplicated (principal); I10 Essential (primary) hypertension; F17.210 Nicotine dependence, cigarettes, uncomplicated